=== PATIENT | male | born 1970 | race American Indian/Alaskan Native ===

== ENCOUNTER 2018-10-24 06:05 | Emergency (ER) | payer OTHER ==
[2018-10-24] MEDS ORDERED: BENADRYL PO ONE (06:48)
[2018-10-24] MEDS ORDERED: IBUPROFEN PO ONE (06:48)
[2018-10-24] MEDS ORDERED: CATAPRES PO ONE (07:30)
--- NOTE | 2018-10-24 07:35 | Emergency Department Report ---
[facility] Chief Complaint: Eye Problems Stated Complaint: EYES HAVE WHITE HAZE CRUSTING Duration: 1 week Side: Bilateral Severity: mild Symptoms: Yes Eye Itching, Yes Eye Redness, Yes Mucous Drainage, Yes Purulent Drainage, No Eye Pain, No Blurred Vision, No Preceding URI, No H/O Allergic Rhinitis, No Contact Lens Use, No Trauma, No Fever, No Headache Other History: This is a 47-year-old [place] male who presents to the emergency room with redness to both eyes for one week. Past medical history of COPD, hypertension, and diabetes. Patient states symptoms originally started on the left eye one week ago. He started to use an leftover erythromycin vomiting ointment and he believe he contaminated 2 and transferred to the right. He also reports using Visine which made his symptoms worse. Patient states when he woke up this morning his eyes were crusted over and he had to wash his eyes out with water in order to open them. Patient states he does not wear contacts but he does wear reading glasses occasionally. Denies visual changes, fever, cough, sore throat, rhinorrhea, or chest pain. ED Review of Systems ROS: Stated complaint: EYES HAVE WHITE HAZE CRUSTING Other details as noted in HPI Constitutional: denies: chills, fever Eyes: eye discharge. denies: eye pain, vision change ENT: denies: ear pain, throat pain Respiratory: denies: cough, shortness of breath, wheezing Cardiovascular: denies: chest pain, palpitations Musculoskeletal: denies: back pain, joint swelling, arthralgia Skin: denies: rash, lesions Neurological: denies: headache, weakness, paresthesias Psychiatric: denies: anxiety, depression ED Past Medical Hx - Past Medical History Previous Medical History?: Yes Hx Hypertension: Yes Hx Diabetes: Yes Hx COPD: Yes - Surgical History Past Surgical History?: No - Social History Smoking Status: Former Smoker Substance Use Type: None - Medications Home Medications: Home Medications Medication Instructions Recorded Confirmed Last Taken Type Polymyxin B Sulf/Trimethoprim 1 drop OP QID 7 Days #1 bottle 10/24/18 Unknown Rx [Polytrim Eye Drops 06652qebev/0.1%] [facility] Exam - Exam General: Vital signs noted. No distress. Alert and acting appropriately. Eye Exam: Both Injection, Both EOMI, Both Purulent Discharge, Neither Chemosis, Neither Abnormal Pupil, Neither Eye Foreign Body, Neither Lid Foreign Body, Neither Mucous Discharge, Neither Fluorescein Uptake, Neither Fluorescein Uptake (slit lamp), Neither Cell/Flare (slit lamp), Neither Corneal Edema, Neither Photophobia HEENT: No Nasal Congestion, No Pharyngeal Erythema Remainder of HEENT: Normal Lungs: Yes Clear Lung Sounds, Yes Good Air Exchange, No Wheezes, No Stridor, No Cough, No Nasal Flaring, No Retractions, No Use of Accessory Muscles ED Course Vital Signs 10/24/18 06:13 Temperature 97.9 F Pulse Rate 71 Respiratory 18 Rate Blood Pressure 208/82 O2 Sat by Pulse 94 Oximetry Vital Signs 10/24/18 10/24/18 10/24/18 06:13 07:39 07:40 Temperature 97.9 F Pulse Rate 71 63 63 Respiratory 18 20 Rate Blood Pressure 208/82 179/80 Blood Pressure 179/80 [Left] O2 Sat by Pulse 94 96 Oximetry ED Medical Decision Making - Medical Decision Making Patient is staying stable and was examined by this provider. Past medical history of diabetes type 2, hypertension, and COPD. Blood pressure is elevated on arrival. On reevaluation prior to discharge patient's blood pressure trended down. Patient has personal blood pressure medication in his pocket and taken it. Physical assessment susceptible of conjunctivitis bilateral. Start azithromycin ophthalmic drops. Discussed plan with patient and he agreed with plan. Discharged home in stable condition. Follow up with PCP in 24-72 hours. Critical care attestation.: If time is entered above; I have spent that time in minutes in the direct care of this critically ill patient, excluding procedure time. ED Disposition Clinical Impression: Redness of both eyes, Asymptomatic hypertension Conjunctivitis Qualifiers: Conjunctivitis type: acute Acute conjunctivitis type: bacterial Laterality: bilateral Qualified Code(s): H10.33 - Unspecified acute conjunctivitis, bilateral Disposition: DC-01 TO HOME OR SELFCARE Is pt being admited?: No Does the pt Need Aspirin: No Condition: Stable Instructions: Hypertension (ED), Conjunctivitis (ED) Additional Instructions: Pinkeye is very contagious so please wash hands frequently. Don't share any towels or bedding to prevent spread of infection. Follow up with corporate recycling manager in 24-72 hours. Use cool compress to each eye to decrease swelling. Avoid rubbing or touching eyes, because rubbing eyes can cause worsening symptoms. Take medication as prescribed. Return to ER if swelling don't improve or difficulty breathing after 2 days of medication. Prescriptions: Polymyxin B Sulf/Trimethoprim [Polytrim Eye Drops [id number]/0.1%] 1 drop OP QID 7 Days #1 bottle Referrals: TWYLA MARIEE MD [Primary Care Provider] - 3-5 Days [facility] [Outside] - 3-5 Days JORGITO GILLILAND MD [Staff Physician] - 3-5 Days [facility] [Provider Group] - 3-5 Days [facility] [Provider Group] - 3-5 Days Time of Disposition: 07:45
[2018-10-24 07:40] VITALS: BP 179/80
== END 2018-10-24 07:58 | disposition home or self-care (01) ==
LOC: ED 06:05
DX: H10.9 Unspecified conjunctivitis (principal); I10 Essential (primary) hypertension; E11.9 Type 2 diabetes mellitus without complications; J44.9 Chronic obstructive pulmonary disease, unspecified; Z87.891 Personal history of nicotine dependence
CPT/HCPCS: 82962